=== PATIENT | female | born 1990 | race Caucasian/White ===

== ENCOUNTER 2016-07-08 16:22 | Emergency (ER) | payer MEDICAID ==
[~2016-07-08] VITALS: Ht 157.5 cm; Wt 98.0 kg
[~2016-07-08 16:22] MED LIST: CLON0.5T PO; DULO20CA45 PO; FOLI-17 PO; LITH450T PO; MULT-484 PO; THIA100T6 PO; VENL75CA PO
[2016-07-08 16:23] VITALS: BP 155/95
== END 2016-07-08 17:45 | disposition home or self-care (01) ==
LOC: ED 16:40
DX: S90.122A Contusion of left lesser toe(s) without damage to nail, initial encounter (principal); K75.9 Inflammatory liver disease, unspecified; F12.10 Cannabis abuse, uncomplicated; W22.09XA Striking against other stationary object, initial encounter; Y93.01 Activity, walking, marching and hiking; Y92.89 Other specified places as the place of occurrence of the external cause; Y99.8 Other external cause status
CPT/HCPCS: 99284

== ENCOUNTER 2016-07-26 10:49 | Emergency (ER) | payer MEDICAID ==
[~2016-07-26] VITALS: Ht 157.5 cm; Wt 92.0 kg
[2016-07-26] MEDS ORDERED: THIAMINE 100MG TABLET PO ONE (12:00)
[2016-07-26] MEDS ORDERED: SODIUM CHLORIDE 0.9% 1,000ML IVBOLUS ONE (12:00)
[2016-07-26 12:57] LABS: BLOOD UREA NITROGEN 11 mg/dL (7-18)
[2016-07-26] MEDS ORDERED: THIAMINE 100MG TABLET ONE (13:03)
[2016-07-26 13:05] LABS: ASPARTATE AMINO TRANSFERASE 24 U/L (15-37)
[2016-07-26 16:25] VITALS: BP 137/74
== END 2016-07-26 16:28 | disposition home or self-care (01) ==
LOC: ED 14:19
DX: F31.60 Bipolar disorder, current episode mixed, unspecified (principal); F10.20 Alcohol dependence, uncomplicated
CPT/HCPCS: 36415; 80053; 80178; 84703; 85025; 96360; 99284; J7030

== ENCOUNTER 2016-08-03 02:56 | Emergency (ER) | payer MEDICAID ==
[~2016-08-03] VITALS: Ht 157.5 cm; Wt 90.0 kg
[2016-08-03] MEDS ORDERED: LORazepam 1MG TABLET ONE (03:09)
[2016-08-03] MEDS ORDERED: LORazepam 1MG TABLET PO ONE (03:30)
[2016-08-03 03:40] LABS: BLOOD UREA NITROGEN 13 mg/dL (7-18)
[2016-08-03 03:45] LABS: ACETAMINOPHEN < 2 mcg/mL (10-30)
[2016-08-03 03:46] LABS: DAU SCREEN DISCLAIMER
[2016-08-03 05:12] VITALS: BP 124/85
== END 2016-08-03 05:15 | disposition home or self-care (01) ==
LOC: ED 03:07
DX: F41.8 Other specified anxiety disorders (principal); F10.129 Alcohol abuse with intoxication, unspecified; F31.9 Bipolar disorder, unspecified
CPT/HCPCS: 36415; 80048; 80307; 80329; 82040; 84703; 85025; 99284; G0480

== ENCOUNTER 2016-08-06 16:56 | Observation (INO) | payer MEDICAID ==
[~2016-08-06] VITALS: Ht 157.5 cm; Wt 95.0 kg
[2016-08-06] MEDS ORDERED: FAMOTIDINE 20 MG/2 ML ONE (17:23)
[2016-08-06] MEDS ORDERED: ONDANSETRON 2MG/ML, 2ML ONE (17:23)
[2016-08-06 17:25] LABS: DAU SCREEN DISCLAIMER
[2016-08-06] MEDS ORDERED: PLEASE ENTER HEIGHT AND WEIGHT MC SCH (17:30)
[2016-08-06] MEDS ORDERED: FAMOTIDINE 20 MG/2 ML IVPush ONE (17:30)
[2016-08-06] MEDS ORDERED: ONDANSETRON 2MG/ML, 2ML IVPush ONE (17:30)
[2016-08-06] MEDS ORDERED: SODIUM CHLORIDE 0.9% 1,000ML IVBOLUS ONE (17:30)
[2016-08-06 17:49] LABS: BLOOD UREA NITROGEN 14 mg/dL (7-18)
[2016-08-06 17:54] LABS: ACETAMINOPHEN < 2 mcg/mL (10-30); ASPARTATE AMINO TRANSFERASE 82 U/L (15-37)
[2016-08-06] MEDS ORDERED: LORazepam 2 MG/ML, 1ML IVPush ONE (18:00)
[2016-08-06] MEDS ORDERED: LORazepam 2 MG/ML, 1ML ONE (19:35)
[2016-08-06] MEDS ORDERED: LORazepam 1MG TABLET ONE (23:52)
[2016-08-06] MEDS: LORazepam 1MG TABLET PO PRN (23:54)
[2016-08-07] MEDS ORDERED: BISACODYL 10 MG SUPP PR PRN
[2016-08-07] MEDS ORDERED: cloniDINE 0.1MG PATCH TD SCH
[2016-08-07] MEDS ORDERED: ONDANSETRON ODT 4 MG PO PRN
[2016-08-07] MEDS ORDERED: DOCUSATE 100 MG CAPSULE PO PRN
[2016-08-07] MEDS ORDERED: DULOXETINE 30 MG CAPSULE.DR PO SCH
[2016-08-07] MEDS ORDERED: ACETAMINOPHEN 325 MG TABLET PO PRN
[2016-08-07] MEDS ORDERED: TRAZODONE 50MG TABLET PO PRN
[2016-08-07] MEDS ORDERED: POLYETHYLENE GLYCOL 17 GM PACKET PO PRN
[2016-08-07 00:15] VITALS: BP 141/97
[2016-08-07] MEDS: LITHIUM CARBONATE 300 MG CAPSULE PO SCH ×2 (01:13→08:12)
[2016-08-07 06:14] LABS: ASPARTATE AMINO TRANSFERASE 52 U/L (15-37); BLOOD UREA NITROGEN 8 mg/dL (7-18)
[2016-08-07 07:08] LABS: HIV 1&2 ANTIBODY SCREEN Nonreactive (Nonreactive); HIV-1 p24 ANTIGEN Nonreactive (Nonreactive)
[2016-08-07] MEDS: LORazepam 1MG TABLET PO PRN ×3 (07:50→14:27)
[2016-08-07 07:59] VITALS: BP 145/93
[2016-08-07] MEDS: GABAPENTIN 100 MG CAPSULE PO SCH ×3 (08:12→16:26)
[2016-08-07 08:44] LABS: PATH.CAST-FLAG NOT PRESENT; SPERM-FLAG NOT PRESENT; SRC-FLAG NOT PRESENT; XTAL-FLAG NOT PRESENT; YLC-FLAG NOT PRESENT
[2016-08-07 08:46] LABS: HCG UR OBC PASS
[2016-08-07] MEDS ORDERED: FOLIC ACID 1 MG TABLET PO SCH (09:00)
[2016-08-07] MEDS ORDERED: THIAMINE 100MG TABLET PO SCH (09:00)
[2016-08-07 10:28] LABS: HEPATITIS C VIRUS ANTIBODY Nonreactive (Nonreactive)
[2016-08-07] MEDS ORDERED: LITH300C PO (10:30)
[2016-08-07 11:07] VITALS: BP 134/89
[2016-08-07 14:20] VITALS: BP 134/92
== END 2016-08-07 16:39 ==
LOC: ED 18:22 → EDIP 22:37 → 3E 08-07 00:11
PROVIDERS: ADMIT Internal Medicine; ATTEND Internal Medicine
DX: R45.851 Suicidal ideations (principal); F31.9 Bipolar disorder, unspecified; E87.2 Acidosis; K29.20 Alcoholic gastritis without bleeding; R10.10 Upper abdominal pain, unspecified; K85.90 Acute pancreatitis without necrosis or infection, unspecified; F10.220 Alcohol dependence with intoxication, uncomplicated; F12.10 Cannabis abuse, uncomplicated; F11.10 Opioid abuse, uncomplicated; E16.2 Hypoglycemia, unspecified; E66.9 Obesity, unspecified
CPT/HCPCS: 36415; 80053; 80074; 80307; 80329; 81001; 81025; 82962; 83690; 84439; 84443; 84703; 85025; 86703; 87899; 96361; 96374; 96375; 99285; G0378; J2060; J2405; J7030; G0435; G0480; S0028

== ENCOUNTER 2016-08-29 15:01 | Emergency (ER) | payer MEDICAID ==
[~2016-08-29] VITALS: Ht 157.5 cm; Wt 84.2 kg
[~2016-08-29 15:01] MED LIST changes: +LITH300C PO
[2016-08-29 15:08] VITALS: BP 162/93
[2016-08-29] MEDS ORDERED: SODIUM CHLORIDE 0.9% 1,000ML IVBOLUS ONE (15:30)
[2016-08-29] MEDS ORDERED: ONDANSETRON 2MG/ML, 2ML IVPush ONE (15:30)
[2016-08-29] MEDS ORDERED: SODIUM CHLORIDE FLUSH 10ML SYR IVF ONE (15:30)
[2016-08-29 16:33] LABS: ASPARTATE AMINO TRANSFERASE 78 U/L (15-37); BLOOD UREA NITROGEN 8 mg/dL (7-18)
[2016-08-29] MEDS ORDERED: ONDANSETRON 2MG/ML, 2ML ONE (16:46)
[2016-08-29] MEDS ORDERED: LORazepam 2 MG/ML, 1ML ONE (16:47)
[2016-08-29] MEDS: LORazepam 2 MG/ML, 1ML IVPush PRN ×2 (16:50→16:52)
[2016-08-29] MEDS ORDERED: THIAMINE 100MG TABLET PO ONE (17:00)
[2016-08-29] MEDS ORDERED: THIAMINE 100MG TABLET ONE (18:04)
== END 2016-08-29 18:54 | disposition home or self-care (01) ==
LOC: ED 18:48
DX: F10.220 Alcohol dependence with intoxication, uncomplicated (principal); R74.8 Abnormal levels of other serum enzymes; R10.31 Right lower quadrant pain; R10.32 Left lower quadrant pain; K75.9 Inflammatory liver disease, unspecified
CPT/HCPCS: 36415; 76700; 80053; 80307; 81003; 83690; 84703; 85025; 96361; 96374; 99285; J2405; J7030; J2060

== ENCOUNTER 2016-12-16 14:51 | Emergency (ER) | payer MEDICAID ==
[~2016-12-16] VITALS: Ht 157.5 cm; Wt 91.0 kg
[2016-12-16] MEDS ORDERED: THIAMINE 100 MG in SODIUM CHLORIDE 0.9% 50 ML IVPB ONE (15:00)
[2016-12-16] MEDS ORDERED: LORazepam 2 MG/ML, 1ML IVPush ONE (15:00)
[2016-12-16] MEDS ORDERED: SODIUM CHLORIDE FLUSH 10ML SYR IVF ONE (15:00)
[2016-12-16] MEDS ORDERED: SODIUM CHLORIDE 0.9% 1,000ML IVBOLUS ONE (15:00)
[2016-12-16 15:11] LABS: HEMATOCRIT 46.8 % (34.6-47.8); HEMOGLOBIN 16.1 g/dL (11.7-16.4); WHITE BLOOD COUNT 6.7 x10^3/uL (3.4-10)
[2016-12-16] MEDS ORDERED: LORazepam 2 MG/ML, 1ML ONE (15:14)
[2016-12-16] MEDS ORDERED: THIAMINE 100 MG/ML, 2ML ONE (15:15)
[2016-12-16 15:19] LABS: ASPARTATE AMINO TRANSFERASE 106 U/L (15-37); BLOOD UREA NITROGEN 10 mg/dL (7-18)
[2016-12-16 15:27] LABS: ACETAMINOPHEN < 2 mcg/mL (10-30)
[2016-12-16 15:35] LABS: DAU SCREEN DISCLAIMER
[2016-12-16 17:08] VITALS: BP 148/92
== END 2016-12-16 17:47 ==
LOC: ED 15:45
DX: F10.229 Alcohol dependence with intoxication, unspecified (principal)
CPT/HCPCS: 36415; 80053; 80307; 80329; 84703; 85025; 96365; 96375; 99285; J2060; J3411; J7030; G0479; G0480

== ENCOUNTER 2018-01-08 09:58 | Emergency (ER) | payer MEDICAID, OTHER ==
[~2018-01-08] VITALS: Ht 157.5 cm; Wt 85.0 kg
[~2018-01-08 09:58] MED LIST changes: -THIA100T6 PO; +THIA100T67 PO
[2018-01-08 10:00] VITALS: BP 113/78
[2018-01-08] MEDS ORDERED: PROMETHAZINE 25 MG/ML, 1ML ONE (10:44)
[2018-01-08] MEDS ORDERED: PROMETHAZINE 25 MG/ML, 1ML IM ONE (11:00)
[2018-01-08] MEDS ORDERED: SODIUM CHLORIDE 0.9% 1,000ML IVBOLUS ONE (11:00)
[2018-01-08 11:19] LABS: BASOPHILS # (AUTO) 0.05 x10^3/uL (0-0.1); BASOPHILS % (AUTO) 1 % (0-1); EOSINOPHILS # (AUTO) 0.01 x10^3/uL (0-0.4); EOSINOPHILS % (AUTO) 0 % (1-7); LYMPHOCYTES # (AUTO) 0.91 x10^3/uL (1-3.4); LYMPHOCYTES % (AUTO) 9 % (22-44); MD NO; MEAN CORPUSCULAR HEMOGLOBIN 29.2 pg (27.0-34.8); MEAN CORPUSCULAR HGB CONC 33.3 g/dL (32.4-35.8); MEAN CORPUSCULAR VOLUME 87.7 fL (80-100); MEAN PLATELET VOLUME 7.6 fL (7.4-10.4); MONOCYTES # (AUTO) 0.36 x10^3/uL (0.2-0.8); MONOCYTES % (AUTO) 3 % (2-9); NEUTROPHILS # (AUTO) 9.25 x10^3/uL (1.8-6.8); NEUTROPHILS % (AUTO) 87 % (42-75); PLATELET COUNT 310 x10^3/uL (130-400); RED BLOOD COUNT 4.91 x10^6/uL (3.82-5.3); RED CELL DISTRIBUTION WIDTH 15.1 % (9.6-15.2)
[2018-01-08 11:31] LABS: ANION GAP 13 mmol/L (5-15); CALCIUM 7.9 mg/dL (8.5-10.1); CHLORIDE 107 mmol/L (98-107); CREATININE 0.61 mg/dL (0.55-1.02)
[2018-01-08 11:32] LABS: ALANINE AMINOTRANSFERASE 35 U/L (12-78); ALBUMIN 3.6 g/dL (3.4-5.0)
[2018-01-08 11:34] LABS: ALKALINE PHOSPHATASE 92 U/L (45-117); BILIRUBIN,TOTAL 0.8 mg/dL (0.2-1.0); TOTAL PROTEIN 7.4 g/dL (6.4-8.2)
== END 2018-01-08 11:59 | disposition home or self-care (01) ==
LOC: ED 11:24
DX: F10.129 Alcohol abuse with intoxication, unspecified (principal); R10.84 Generalized abdominal pain; E86.0 Dehydration; R11.2 Nausea with vomiting, unspecified; F31.9 Bipolar disorder, unspecified
CPT/HCPCS: 36415; 80053; 80307; 83690; 85025; 96372; 99284; J2550

== ENCOUNTER 2018-01-11 21:50 | Emergency (ER) | payer OTHER ==
[~2018-01-11] VITALS: Ht 157.5 cm; Wt 84.5 kg
[2018-01-11 22:00] VITALS: BP 132/84
== END 2018-01-11 23:01 | disposition left against medical advice (07) ==
LOC: ED 22:40
DX: F10.129 Alcohol abuse with intoxication, unspecified (principal); Z53.21 Procedure and treatment not carried out due to patient leaving prior to being seen by health care provider